=== PATIENT | female | born 1955 | race Two or more races ===

== ENCOUNTER 2022-07-20 07:17 | Emergency (ER) | payer OTHER ==
[2022-07-20 07:44] VITALS: RESP 18; BMI 56.2
[2022-07-20] MEDS ORDERED: ACETAMINOPHEN 1000 MG/100 ML BAG IVPB ONE (07:58)
[2022-07-20] MEDS ORDERED: ONDANSETRON 4 MG/2 ML VIAL IVPUSH ONE (07:58)
[2022-07-20] MEDS ORDERED: ACETAMINOPHEN INJECTION 100 ML IVPB ONE (08:15)
[2022-07-20] MEDS ORDERED: ONDANSETRON 4 MG/2 ML VIAL ONE (08:15)
[2022-07-20 08:31] LABS: BASO % 0.5 % (0-2.0); EOS % 7.7 % (0-4.5); HEMATOCRIT 39.3 % (32.4-45.2); LYMPH % 29.5 % (8-40); MCH 26.7 pg (25.7-33.7); MCHC 33.2 g/dl (32.0-36.0); MEAN CELL VOLUME 80.4 fl (80-96); MEAN PLT VOLUME 8.7 fl (7.5-11.1); MONO % 9.6 % (3.8-10.2); NEUT % 52.7 % (42.8-82.8); PLATELET COUNT 235 10^3/uL (134-434); RBC 4.89 M/mm3 (3.60-5.2); RDW 15.2 % (11.6-15.6); WHITE BLOOD COUNT 6.9 K/mm3 (4.0-10.0)
[2022-07-20 08:51] LABS: ALBUMIN 3.7 g/dl (3.4-5.0); CALCIUM 9.9 mg/dL (8.5-10.1)
[2022-07-20 08:54] LABS: CREATININE 0.9 mg/dL (0.55-1.3)
[2022-07-20 08:55] LABS: BILIRUBIN,TOTAL 0.3 mg/dL (0.2-1); TOT PROT 7.4 g/dl (6.4-8.2)
[2022-07-20] MEDS ORDERED: amLODIPine BESYLATE 5 MG TABLET (FP) PO ONE (09:11)
[2022-07-20] MEDS ORDERED: SODIUM CHLORIDE 500 ML IV STA (09:15)
[2022-07-20] MEDS ORDERED: amLODIPine BESYLATE 5 MG TABLET (FP) ONE (09:16)
[2022-07-20 09:42] LABS: ERYTHROCYTE SEDIMENTATION RATE 12 mm/hr (0-30)
[2022-07-20 10:20] VITALS: BP 153/72; PULSE 78; TEMP 97.6
== END 2022-07-20 10:18 | disposition home or self-care (01) ==
LOC: JER 07:17
PROC: 3E033NZ Introduction of Analgesics, Hypnotics, Sedatives into Peripheral Vein, Percutaneous Approach (ICD-10-PCS; principal; 2022-07-20)
PROC: 3E033GC Introduction of Other Therapeutic Substance into Peripheral Vein, Percutaneous Approach (ICD-10-PCS; 2022-07-20)
DX: R11.0 Nausea (principal); R51.9 Headache, unspecified; I10 Essential (primary) hypertension
CPT/HCPCS: 36415; 70450-TC; 80053; 84484; 85025; 85651; 93005; 93010; 96374; 96375; 99285-25

== ENCOUNTER 2023-03-16 14:15 | Emergency (ER) | payer OTHER ==
[2023-03-16 14:34] VITALS: BP 133/69; PULSE 85; RESP 18; TEMP 98; BMI 25.2
[2023-03-16] MEDS ORDERED: ONDANSETRON *ODT* 4 MG TABLET SL ONE (16:23)
[2023-03-16] MEDS ORDERED: ONDANSETRON *ODT* 4 MG TABLET ONE (16:35)
[2023-03-16] MEDS ORDERED: LIDOCAINE VISCOUS 2% ORAL/TOP 15 ML UNIT-DOSE CUP MM ONE (17:52)
[2023-03-16] MEDS ORDERED: TETRACAINE/BENZOCAINE/BUTAMBEN 20 GM SPR TP ONE (17:58)
[2023-03-16] MEDS ORDERED: BENZOCAINE 20% 57 GM BOTTLE TP ONE (18:08)
[2023-03-16] MEDS ORDERED: LIDOCAINE VISCOUS 2% ORAL/TOP 15 ML UNIT-DOSE CUP ONE (18:24)
[2023-03-16] MEDS ORDERED: LIDOCAINE HCL 2% (50ML VIAL) SQ ONE (18:35)
== END 2023-03-16 19:24 | disposition home or self-care (01) ==
LOC: JER 14:15
DX: T17.228A Food in pharynx causing other injury, initial encounter (principal); R11.0 Nausea
CPT/HCPCS: 70360-TC-FY; 71046-TC-FY; 99284-25; Q0162